=== PATIENT | male | born 1960 | race Caucasian/White ===

== ENCOUNTER 2020-10-10 11:55 | Emergency (ER) | payer OTHER, SELFPAY ==
[2020-10-10 11:56] VITALS: BP 136/89; PULSE 60; PULSE 68; RESP 14; RESP 16; TEMP 36.6; O2SAT 98; BMI 30.9
--- NOTE | 2020-10-10 12:27 | EKG12_ITS ---
Test Reason : CP Blood Pressure : / mmHG Vent. Rate : 064 BPM Atrial Rate : 064 BPM P-R Int : 152 ms QRS Dur : 074 ms QT Int : 420 ms P-R-T Axes : 053 024 053 degrees QTc Int : 433 ms Normal sinus rhythm Normal ECG Confirmed by JENNIFER JUAREZ, GILBERT ([id number]), staff editor DENISE VELASCO ([id number]) on 10/12/2020 12:42:19 PM Referred By: ROLAND Confirmed By:GILBERT RODRIGUEZ MD
--- NOTE | 2020-10-10 12:35 | RAD_ITS ---
STUDY: X-RAY CHEST REASON FOR EXAM: Male, 60 years old. Chest pain . Dizziness. TECHNIQUE: Single AP portable view of the chest. COMPARISON: Comparison is made with prior study dated 07/13/2013. FINDINGS: EKG electrodes are seen. The lungs are clear and expanded. There is no demonstrated pleural abnormality. Normal size heart. Normal mediastinum and chelsie. Normal visualized pulmonary arteries. There is atherosclerotic tortuosity of the aortic arch and descending thoracic aorta. There are diffuse degenerative changes of the visualized thoracic spine. Normal visualized ribs, clavicles, and shoulders. There is no demonstrated abnormality of the visualized soft tissue structures of the upper abdomen. RAD/Chest 1 View (Portable) IMPRESSION: No acute abnormality is present. Electronically Signed: Los Ty MD at 12:51 EDT , Service support ,
[2020-10-10 12:36] LABS: Absolute Lymphocyte Count 1.47 X10^3/uL (0.83-4.51); Absolute Neutrophil Count 5.6 X10^3/uL (2.0-7.7); Basophil# 0.03 X10^3/uL; Basophil% 0.4 % (0-1); Eosinophil# 0.05 X10^3/uL; Eosinophils% 0.7 % (0-5); Hematocrit 47.3 % (40-54); Hemoglobin 16.3 g/dL (13.0-16.5); Lymphocyte # 1.47 X10^3/ul (4.0); Lymphocyte % 19.4 % (19-41); Mean Corp Hgb Conc 34.5 g/dL (32-36); Mean Corpuscular Hgb 31.7 pg (27.0-32.0); Mean Corpuscular Volume 91.8 fL (80-94); Mean Platelet Vol. 9.1 fl (6.2-12.0); Monocyte# 0.39 X10^3/uL; Monocyte% 5.1 % (0-10); NRBC Flagged by Analyzer 0 % (0-5); Neutrophil # 5.62 X10^3/uL (2.7-7.7); Neutrophil % 74.1 % (47-70); Platelet Count 212 K/mm3 (150-450); RBC Distribution Width CV 12.6 % (11.6-14.6); RBC Distribution Width SD 42.3 fl (35.1-43.9); Red Blood Count 5.15 M/mm3 (4.6-6.2); White Blood Count 7.6 K/mm3 (4.4-11.0)
--- NOTE | 2020-10-10 12:46 | ED.DCSUM_ITS ---
History of Present Illness Chief Complaint: Chest Pain Informant: Patient Onset: Today Narrative: Patient is a 60-year-old male presenting with vertigo and dizziness. Patient started feeling dizzy this morning when he got out of bed. He states that after he ate some breakfast he was so dizzy that he threw up this morning. He has associated nausea. Never had any like this before. Denies a history of vertigo. Also notes that he has chronic ringing in his ears. Patient also states that he has been having intermittent episodes of left sided chest pain. This been going on for years. He states he feels like he has a rib out. He had an episode last night. He denies any chest pain today. He states that last anywhere from 30 minutes to an hour. He denies associated shortness of breath or difficulty breathing. Is a sharp pain. Denies any radiation of the pain but states sometimes it does radiate down to his lower abdomen. Had a stress test about 5 years ago which was ultimately normal but he was diagnosed with obstructive sleep apnea. Patient is compliant with his CPAP. He denies any swelling of his legs. He currently denies any chest pain. No other complaints at this time. Patient states he has been told he has hypertension in the past is not currently on any medications. Past Medical History - Allergies and Home Meds Allergies/Adverse Reactions: Allergies No Known Allergies Allergy (Verified 10/10/20 12:04) Primary Care Physician: Kirit Campbell MD [STAFF PHYSICIAN] - Georges Champagne MD [Primary Care Provider] - Past Medical History: - - Obstructive sleep apnea, hypertension Surgical History: noncontributory Lives: Spouse/ Significant Other Smoking Status: Never smoker Review of Systems General: Denies: Chills, Fever, Sweats Eyes: Denies: Visual changes - bilaterally, Diplopia ENT: Reports: - - Ear ringing, right worse than left. Denies: Bilateral ear pain, Rhinorrhea, Sore throat Cardiovascular: Reports: Chest pain. Denies: Palpitations Respiratory: Denies: Dyspnea, Cough, Dyspnea on exertion Gastrointestinal: Reports: Nausea, Vomiting. Denies: Abdominal pain, Diarrhea, Melena, Hematochezia Genitourinary: Denies: Dysuria, Hematuria, Frequency Musculoskeletal: Denies: Back pain, Extremity Pain Skin: Denies: Rash, Wounds Neurological: Reports: - - Dizziness. Denies: Headache, Weakness, Numbness Physical Exam Vital Signs/Narrative: Vital Signs Temp Pulse Resp BP Pulse Ox 10/10/20 11:56 97.8 F 60 16 136/89 H 98 Inital Vital Signs reviewed: Yes General: Well nourished, Well developed, No Acute Distress Head: Normocephalic, Atraumatic Eyes: Perrl, EOMI, - - Bilateral fatiguing horizontal nystagmus with rightward gaze ENT: Moist mucous membranes, No rhinorrhea Neck: Supple, Nontender, No JVD Cardiovascular: Regular rate, Regular rhythm, No murmurs Respiratory: No distress, CTA bilaterally, Chest nontender Abdomen: Soft, Nontender, Nondistended, Normal bowel sounds Back: Nontender, Normal Inspection Extremities: Nontender, No edema Skin: Normal color, No rash Neurological: Alert, Oriented x3, Cranial nerves II-XII grossly intact, Normal Strength, Normal Sensation, - - Normal coordination. Positive [place]-Hallpike test on the right. No truncal ataxia.. Negative for: Weakness, Left side facial droop, Right side facial droop Psychological: Normal affect, Normal Mood Diagnostic/Tx/Re-eval Chest X-Ray - ED: 1 View, Read by ED Physician, Read by Radiologist, No Acute Disease Clinical Impression(s) from Imaging Studies Chest X-Ray 10/10/20 12:35 IMPRESSION: No acute abnormality is present. Electronically Signed: Los Ty MD at 12:51 EDT , Service support , Laboratory Data 10/10/20 10/10/20 12:10 12:10 WBC 7.6 RBC 5.15 Hgb 16.3 Hct 47.3 MCV 91.8 MCH 31.7 MCHC 34.5 RDW Std Deviation 42.3 RDW Coeff of Jeison 12.6 Plt Count 212 MPV 9.1 Immature Gran % (Auto) 0.300 Neut % (Auto) 74.1 H Lymph % (Auto) 19.4 [place] % (Auto) 5.1 Eos % (Auto) 0.7 Baso % (Auto) 0.4 Absolute Neuts (auto) 5.6 Absolute Lymphs (auto) 1.47 Nucleated RBC % 0 Sodium 136 Potassium 3.9 Chloride 105 Carbon Dioxide 28.0 Anion Gap 3 L BUN 15 Creatinine 1.02 Estim Creat Clear Calc 76.05 Est GFR (MDRD) Af Amer 95 Est GFR (MDRD) Non-Af 79 BUN/Creatinine Ratio 14.7 Glucose 157 H Calcium 9.2 Troponin I < 0.015 - Rhythm Strip Rhythm Strip: Sinus Rhythm Rate: 64 Ectopy: None - EKG Initial EKG Interpretation: Sinus Rhythm, - - Normal sinus rhythm rate of 64 Normal axis Normal intervals Normal ST segments Prior to prior EKG patient is no longer tachycardic and has no other acute changes - Medical Decision Making Patient evaluated for 1 day of vertigo as well as years of intermittent left- sided chest pain. Exam is consistent with peripheral vertigo on the right. Patient is treated with Valium and has improvement of his symptoms. Cardiac work-up is obtained as he does have a history of hypertension and has been having this intermittent left-sided chest pain.. I do not think his vertigo is neurologic or cardiac in nature. Cardiac work-up is negative. Patient not have any acute ischemic changes on his EKG, troponin is negative and chest x-ray is normal. Patient does not have a significant laboratory abnormalities on blood work. Patient is counseled on peripheral vertigo care. He is given information for the Valerio maneuver. He is referred to ENT as he also has a longstanding history of tinnitus. M?ni?re's is on the differential. Patient struck to follow-up with his primary care doctor for further cardiac evaluation. It has been about 5-year since his last stress test. Patient is counseled on signs and symptoms requiring return to the emergency room. Patient verbalizes agreement and understand this plan. Patient discharged home in stable and improved condition. ED Disposition - Plan for ED Patient: Disposition: Home or Assisted Living Diagnosis: Peripheral vertigo involving right ear, Atypical chest pain Instructions: ED Chest Pain, Noncardiac, ED BPV Vertigo Prescriptions: Meclizine HCl [Antivert] 25 mg PO 4X/DAY PRN PRN #20 tablet PRN Reason: Vertigo Transmission Status: Received by [id number] Referrals: Georges Champagne MD [Primary Care Provider] - Kirit Campbell MD [STAFF PHYSICIAN] -
[2020-10-10 12:56] VITALS: BP 123/84; PULSE 63; RESP 10; O2SAT 97
[2020-10-10 12:56] LABS: Anion Gap 3 (5-15); BUN 15 mg/dL (7-18); BUN/Creat Ratio 14.7 RATIO (10-20); Calcium,Total 9.2 mg/dL (8.5-10.1); Chloride 105 mmol/L (98-107); Creatinine, Serum 1.02 mg/dL (0.70-1.30); EST Glomerular Filtration Rate 79 mL/min (>60); Est Glom Filt Rate - Afr Amer 95 mL/min (>60); Estimated Creatinine Clearance 76.05 ml/min; Glucose 157 mg/dL (74-106); Potassium 3.9 mmol/L (3.5-5.1); Sodium Level 136 mmol/L (136-145)
[2020-10-10] MEDS: diazePAM 5 MG Tablet PO (12:58)
[2020-10-10 14:05] VITALS: BP 116/79; PULSE 81; RESP 16; O2SAT 97
--- NOTE | 2020-10-10 14:05 | ED.RN ---
THIS NURSE REVIEWED D/C INSTRUCTIONS WITH PT AND . BOTH VERBALIZED UNDERSTANDING OF INSTRUCTIONS. IV D/C. IV CATHETER INTACT. PT TOLERATED WELL. PT DENIES FURTHER NEEDS OR QUESTIONS AT THIS TIME.
== END 2020-10-10 14:06 | disposition home or self-care (01) ==
PROVIDERS: Emergency Provider Emergency Medicine; PCP Internal Medicine
DX: H81.391 Other peripheral vertigo, right ear (principal); R07.89 Other chest pain
CPT/HCPCS: 71045; 80048; 84484; 85025; 93005; 99285; A4216

== ENCOUNTER 2024-08-04 15:28 | Emergency (ER) | payer OTHER, MEDICARE, SELFPAY ==
[2024-08-04 15:29] VITALS: BP 149/92; PULSE 102; RESP 16; TEMP 36.6; O2SAT 96; BMI 30.5
[2024-08-04 15:32] VITALS: BP 140/87; PULSE 93; RESP 22; TEMP 36.6; O2SAT 96
--- NOTE | 2024-08-04 15:54 | EKG12_ITS ---
Test Reason : Blood Pressure : */* mmHG Vent. Rate : 84 BPM Atrial Rate : 84 BPM P-R Int : 154 ms QRS Dur : 72 ms QT Int : 372 ms P-R-T Axes : 59 4 60 degrees QTcB Int : 439 ms Normal sinus rhythm Normal ECG Confirmed by UMBERTO JUAREZ, BRIANNA ([id number]), newspaper editor INGA BRITT ([id number]) on 08/09/2024 7:14:42 AM Referred By: Confirmed By: BRIANNA SHIPMAN MD
--- NOTE | 2024-08-04 15:57 | EDS_ITS ---
HPI HPI - URI History of Present Illness Chief Complaint: Nausea/Vomiting/Diarrhea Informant: patient Onset/Context/Timing Onset: Days Context: Gradual Onset Timing: Continuous Current Severity: Moderate Maximum Severity: Moderate Associated Symptoms Associated Symptoms: Positive for Nasal Congestion, Myalgias, Nausea, Vomiting, Diarrhea and Nonproductive cough Narrative Narrative: 64-year-old male no seen past medical history. Currently on no medications. Patient states that on Thursday he started having a cough and developed nausea, vomiting and diarrhea. He has had the symptoms intermittently since Thursday now for 5 days. He says he feels tired and weak and dehydrated. He has had some chest pain which he thinks is from coughing. But he went to have that evaluated. He denies any exertional chest pain or shortness of breath prior to getting ill. Denies any leg pain or swelling. No hematemesis or melena. Prior similar symptoms: Yes Recent Illness/Hospitalization: No ROS ROS ED ROS Narrative Cough and congestion. Nausea vomiting and diarrhea. Atypical nonexertional chest pain. Constitutional Constitutional ED: Denies chills Eyes Eyes: Denies blurry vision ENT ENT ED: Denies ear pain Cardiovascular Cardiovascular: Reports chest pain Respiratory/Chest Respiratory/Chest: Reports cough Gastrointestinal Gastrointestinal: Reports diarrhea, nausea and vomiting; Denies abdominal pain, constipation or melena Genitourinary Genitourinary ED: Denies dysuria or hematuria Musculoskeletal Musculoskeletal: Denies arthralgias or back pain Integumentary Denies abscess Neurologic Neurologic: Denies headache(s) Psychiatric Psychiatric: Denies anxiety Endocrine Endocrinology: Denies cold intolerance Hematologic/Lymphatic Hematologic/Lymphatic: Denies easy bleeding, easy bruising or lymphadenopathy Allergic/Immunologic Allergic/Immunologic ED: Denies mouth swelling, tongue swelling or urticaria PFSH PFSH Medical History Deviated septum Inguinal hernia Osteoid osteoma Allergy/AdvReac Type Severity Reaction Status Date / Time No Known Allergies Allergy Verified 08/04/24 15:29 Surgical History H/O vasectomy Social History Smoking Status: Never smoker EXAM Physical Exam Narrative Exam Narrative: 64-year-old male vital signs are stable afebrile. He does not look septic or toxic. He is no acute distress. Pulse ox 96% on room air no hypoxia. H EENT exam. Reactive light. Mildly dry mucous membranes. Neck nontender no lymphadenopathy. Lungs clear to auscultation bilateral. Heart regular rhythm no murmur rate about 95. Chest wall and ribs nontender. Abdomen soft, nontender, nondistended normal bowel sounds no peritoneal signs. Moving all 4 extremities. Nontender no edema. Neurologically awake and alert no focal motor deficits. Skin unremarkable. Back nontender. Benign exam. Const Vital Signs: 08/04/24 15:29 08/04/24 15:32 08/04/24 16:18 Temperature 98 F 98 F Temperature Source Oral Oral Pulse Rate 102 H 93 Respiratory Rate 16 22 H Blood Pressure 149/92 H 140/87 H Blood Pressure Mean 111 104 Pulse Ox 96 96 Oxygen Delivery Method Room Air Room Air Room Air Positive well nourished and well developed; Negative for cachectic or contrac tures General Appearance ED: well developed and NAD; Negative for cachectic, contractures, cyanotic, diaphoretic or pallor Nutritional Appearance: Negative for cachectic HEENT Reports dry mucous membranes normocephalic and atraumatic Mouth ED: Yes dry mucous membranes Mouth: dry mucous membranes Throat: posterior oropharynx normal Eyes PERRL and EOMs intact bilaterally General Eye ED: Negative for pale conjunctiva or scleral icterus Neck no lymphadenopathy, supple, no meningeal signs and no JVD General: Negative for anterior neck swelling or lymphadenopathy Resp normal respiratory effort and clear to auscultation bilaterally Effort and Inspection: Negative for retractions Auscultation: Negative for rales, rhonchi, wheezes or diminished lung sounds Cardio S1 normal heart sound, S2 normal heart sound and no murmurs Rate: regular rate Rhythm: regular rhythm GI non-tender, non-distended and no masses Palpation: soft; Negative for tender or guarding Back/Spine no CVA tenderness and normal ROM General Back: Negative for CVA tenderness Cervical Spine: Negative for cervical spine tenderness Thoracic Spine / Upper Back: Negative for thoracic spinal tenderness Lumbar Spine / Lower Back: Negative for lumbar spinal tenderness Sacrum: Negative for tenderness Extremity normal to inspection and full ROM General Extremety ED: Negative for cyanosis or tenderness General Extremity: Negative for cyanosis Neuro oriented x3 and CN's II-XII intact bilaterally Sensorium / Orientation: alert, oriented to person, oriented to place and oriented to time; Negative for orientation impaired, lethargic or stuporous Motor Exam: strength 5/5 throughout Psych mental status grossly normal Attitude: No agitated Mood & Affect: Negative for depressed, anxious or tearful Skin General Skin Exam: Negative for jaundice or pallor Lesions: no lesions Rashes: no rashes Trauma: Negative for abrasion or laceration MDM MDM MDM Narrative Medical decision making narrative: 64-year-old male with viral syndrome type symptoms with cough, nausea vomiting diarrhea. Clinically looks mildly dehydrated received a liter normal saline. Zofran for nausea. He is having atypical noncardiac sounding chest pain we will do a cardiac workup. My suspicion of this being cardiac is quite low. No history of DVT or PE risk factors. He will be reassessed. Repeat exam at 4:50 PM patient doing well. Nausea resolved. He is able to hold down fluids. He has received a liter of saline. He and I went over his labs. Awaiting his respiratory panel. Patient be discharged home. Plenty of fluids and rest. Fever control with Tylenol and Motrin. Zofran as needed for nausea. Outpatient follow-up as needed. Return if worse. History & Record Review Discussion w/independent historian: Patient Lab Data Attestation: I reviewed the patient's lab results. Lab results narrative: CBC shows a white count of 3.1. H&H 17.1 and 48. Platelets 175. Electrolytes show gap 8. Normal BUN of 13 creatinine 0.9. Glucose honored. Troponin 9. Chest x-ray 2 views chronic changes no acute process. Flu a positive. Labs: Laboratory Results - last 24 hr 08/04/24 15:45 WBC 3.1 L RBC 5.48 Hgb 17.1 H Hct 48.3 MCV 88.1 MCH 31.2 MCHC 35.4 RDW Std Deviation 42.8 RDW Coeff of Jeison 13.2 Plt Count 175 MPV 8.9 Immature Gran % (Auto) 0.300 Neut % (Auto) 50.0 Lymph % (Auto) 39.0 [place] % (Auto) 10.1 H Eos % (Auto) 0.0 Baso % (Auto) 0.6 Absolute Neuts (auto) 1.5 L Absolute Lymphs (auto) 1.20 Nucleated RBC % 0 Sodium 136 Potassium 4.1 Chloride 108 H Carbon Dioxide 20.0 L Anion Gap 8 BUN 13 Creatinine 0.96 Estim Creat Clear Calc 86.78 Est GFR (MDRD) Af Amer 102 Est GFR (MDRD) Non-Af 84 BUN/Creatinine Ratio 13.6 Glucose 100 Calcium 8.9 Troponin I High Sens 9 Radiography Chest X-Ray - ED: 2 View, Read by ED Physician, Normal, Heart, Lungs, Mediastinum, Bony Structures, No Acute Disease and Chronic Changes Diagnostic Testing: Clinical Impression(s) from Imaging Studies Chest X-Ray 08/04/24 16:30 IMPRESSION: Right lower lobe airspace disease and subsegmental atelectasis Electronically Signed: Stevan Rausch MD at 16:46 EST , Chest x-ray, 2 views, AP and lateral, interpreted by myself shows no acute abnormality. Normal cardiac silhouette. Normal lung menjivar. Discharge Plan Triage Chief Complaint: Nausea/Vomiting/Diarrhea ED Provider: Rico Alberto Dx/Rx/DC Orders Primary Care Provider: Georges Champagne Referrals: Georges Champagne MD [Primary Care Provider] - Print Language: Dominican
[2024-08-04] MEDS: 0.9% Normal Saline (1000mL) 1,000 ML 999 ML IV (16:03)
[2024-08-04] MEDS: Ondansetron 4 MG/2 ML Vial IV (16:03)
[2024-08-04 16:16] LABS: Absolute Neutrophil Count 1.5 X10^3/uL (2.0-7.7); Basophil# 0.02 X10^3/uL; Basophil% 0.6 % (0-1); Hematocrit 48.3 % (40-54); Hemoglobin 17.1 g/dL (13.0-16.5); Mean Corp Hgb Conc 35.4 g/dL (32-36); Mean Corpuscular Hgb 31.2 pg (27.0-32.0); Mean Corpuscular Volume 88.1 fL (80-94); Mean Platelet Vol. 8.9 fl (6.2-12.0); Monocyte# 0.31 X10^3/uL; Monocyte% 10.1 % (0-10); NRBC Flagged by Analyzer 0 % (0-5); Neutrophil # 1.54 X10^3/uL (2.7-7.7); Platelet Count 175 K/mm3 (150-450); RBC Distribution Width CV 13.2 % (11.6-14.6); RBC Distribution Width SD 42.8 fl (35.1-43.9); Red Blood Count 5.48 M/mm3 (4.6-6.2); White Blood Count 3.1 K/mm3 (4.4-11.0)
[2024-08-04 16:29] LABS: Anion Gap 8 (5-15); BUN 13 mg/dL (7-18); BUN/Creat Ratio 13.6 RATIO (10-20); Calcium,Total 8.9 mg/dL (8.5-10.1); Chloride 108 mmol/L (98-107); Creatinine, Serum 0.96 mg/dL (0.70-1.30); EST Glomerular Filtration Rate 84 mL/min (>60); Est Glom Filt Rate - Afr Amer 102 mL/min (>60); Estimated Creatinine Clearance 86.78 ml/min; Glucose 100 mg/dL (74-106); Potassium 4.1 mmol/L (3.5-5.1); Sodium Level 136 mmol/L (136-145); Troponin-I HS 9 pg/mL (3.0-78.0)
--- NOTE | 2024-08-04 16:30 | RAD_ITS ---
STUDY: X-RAY CHEST REASON FOR EXAM: Male, 64 years old. chest pain TECHNIQUE: Single frontal view of the chest. COMPARISON: October 10, 2020 FINDINGS: Right lower lobe airspace disease or subsegmental atelectasis. There is no demonstrated pleural abnormality. Normal size heart. Normal mediastinum and chelsie. Normal visualized pulmonary arteries. Normal visualized aortic arch and descending thoracic aorta. Normal visualized thoracic spine. Normal visualized ribs, clavicles, and shoulders. There is no demonstrated abnormality of the visualized soft tissue structures of the upper abdomen. RAD/Chest PA and Lateral IMPRESSION: Right lower lobe airspace disease and subsegmental atelectasis Electronically Signed: Stevan Rausch MD at 16:46 EST ,
[2024-08-04 17:22] VITALS: BP 127/89; PULSE 89; RESP 24; TEMP 37.2; O2SAT 96
== END 2024-08-04 17:23 | disposition home or self-care (01) ==
PROVIDERS: Emergency Provider Emergency Medicine; PCP Internal Medicine; Visit Provider Emergency Medicine
DX: R11.2 Nausea with vomiting, unspecified (principal); R19.7 Diarrhea, unspecified
CPT/HCPCS: 71046; 80048; 84484; 85025; 87631; 93005; 96361; 96374; 99283; A4216; J2405